=== PATIENT | female | born 1960 | race Caucasian/White ===

== ENCOUNTER 2016-12-16 07:52 | Day surgery (SDC) | payer OTHER ==
[~2016-12-16] VITALS: Ht 160 cm; Wt 77.1 kg
[2016-12-16] MEDS ORDERED: NEEDLELESS EST SET LARGE BORE 1 EA INFUS.SET MC ONE (09:25)
[2016-12-16] MEDS ORDERED: SECONDARY IV SET 1 EA INFUS.SET MC ONE (09:25)
[2016-12-16] MEDS ORDERED: IV SET PRIMARY 1 EA INFUS.SET MC ONE (09:25)
[2016-12-16] MEDS ORDERED: IV LR 1000 ML 1,000 ML ONE (09:25)
[2016-12-16] MEDS ORDERED: CEFAZOLIN SODIUM/DEXTROSE,ISO 50 ML IV ONE (10:08)
[2016-12-16] MEDS ORDERED: CETI-102 PO (10:15)
[2016-12-16] MEDS ORDERED: ALPR0.5T8 PO (10:15)
[2016-12-16] MEDS ORDERED: SENNA (10:15)
[2016-12-16] MEDS ORDERED: LORA2TAB PO (10:15)
[2016-12-16] MEDS ORDERED: MEDR5POW MC (10:15)
[2016-12-16] MEDS ORDERED: ESTR2TAB PO (10:15)
[2016-12-16] MEDS ORDERED: BUPIVACAINE MPF 0.5% W/EPI INJ 30 ML VIAL ONE (10:39)
[2016-12-16] MEDS ORDERED: KETOROLAC TROMETHAMINE INJ 30 MG/ML VIAL ONE (10:39)
[2016-12-16] MEDS ORDERED: BACITRACIN 50000 UNITS/VIAL ONE (10:39)
== END 2016-12-16 11:14 | disposition home or self-care (01) ==
LOC: DS 07:52
PROVIDERS: ATTEND Specialist
DX: Z53.20 Procedure and treatment not carried out because of patient's decision for unspecified reasons (principal); M16.12 Unilateral primary osteoarthritis, left hip; M51.26 Other intervertebral disc displacement, lumbar region; M45.6 Ankylosing spondylitis lumbar region
CPT/HCPCS: 36415; 86850; 86921; 87081; J0690; J7120; J1885; J3490

== ENCOUNTER 2019-04-26 08:10 | Inpatient (IN) | payer OTHER ==
[~2019-04-26] VITALS: Ht 160 cm; Wt 70.8 kg
[~2019-04-26 08:10] MED LIST: ALPR0.5T8 PO; CETI-102 PO; ESTR2TAB PO; LORA2TAB PO; MEDR5POW MC; SENNA
[2019-04-26 08:30] VITALS: BP 123/66
--- NOTE | 2019-04-26 08:45 | NUR ---
RECEIVED PT IN ROOM PT CAME WITH FAMILY PUSHING HER ON HER WALKER. PT IS A&OX4. PT DENIES PAIN OR SOB AT PRESENT MOMENT. PT SIGNED CONSENT AND SURGERY TEAM SHOWED UP AT BEDSIDE. OR WAS NOTIFIED THAT MULTIPLE ATTEMPTS TO PLACE AN IV WERE UNSUCCESSFUL. PT WENT TO OR BY BED WITH DAUGHTER IN LAW AT BEDSIDE.
[2019-04-26] MEDS ORDERED: TRANEXAMIC ACID 3,000 MG in SODIUM CHLORIDE IRRIG SOLUTION 70 ML IR ONE (09:00)
[2019-04-26] MEDS ORDERED: RIVA10TA PO (09:26)
[2019-04-26] MEDS ORDERED: LORA-258 PO (09:26)
[2019-04-26] MEDS ORDERED: POTA20TA83 PO (09:26)
[2019-04-26] MEDS ORDERED: HYDR-4354 PO (09:26)
[2019-04-26] MEDS ORDERED: MEDR5TAB PO (09:26)
[2019-04-26] MEDS ORDERED: ESTR2TAB PO (09:26)
[2019-04-26] MEDS ORDERED: HYDR25TA4 PO (09:26)
[2019-04-26] MEDS ORDERED: ONDA4TAB5 PO (09:26)
[2019-04-26] MEDS ORDERED: CETI1TAB9 PO (09:26)
[2019-04-26] MEDS ORDERED: FLUT16SP NS (09:26)
[2019-04-26] MEDS ORDERED: LORA0.5T PO (09:28)
[2019-04-26] MEDS ORDERED: SENN-168 PO (09:37)
[2019-04-26 09:43] LABS: BASOPHILS # (AUTO) 0.1 /CMM (0.0-0.2); BASOPHILS % (AUTO) 0.8 % (0.0-2.0); EOSINOPHILS % (AUTO) 1.1 % (0.0-6.0); HEMATOCRIT 38 % (33-45); HEMOGLOBIN 12.5 g/dL (11.5-14.8); LYMPHOCYTES # (AUTO) 2.2 /CMM (0.8-4.8); LYMPHOCYTES % (AUTO) 30.5 % (20.0-44.0); MEAN CORPUSCULAR HGB CONC 33 g/dl (31.0-36.0); MEAN CORPUSCULAR VOLUME 90 fL (82-100); MONOCYTES # (AUTO) 0.7 /CMM (0.1-1.30); MONOCYTES % (AUTO) 9.6 % (2.0-12.0); NEUTROPHILS # (AUTO) 4.3 /CMM (1.8-8.9); PLATELET COUNT (AUTO) 404 /CMM (150-450); RED BLOOD CELL COUNT(AUTO) 4.19 MIL/uL (4.0-5.2); WHITE BLOOD COUNT (AUTO) 7.4 K/uL (4.3-11.0)
[2019-04-26 09:44] LABS: CALCIUM, SERUM 8.6 mg/dL (8.5-10.1); CREATININE 0.9 mg/dL (0.6-1.3); POTASSIUM 3.9 mmol/L (3.5-5.1)
[2019-04-26 09:51] LABS: ALBUMIN 3.3 g/dL (3.4-5.0); BILIRUBIN,TOTAL 0.4 mg/dL (0.2-1.0); TOTAL PROTEIN, SERUM 6.9 g/dL (6.4-8.2)
[2019-04-26] MEDS ORDERED: BACITRACIN 50000 UNITS/VIAL ONE (10:20)
[2019-04-26] MEDS ORDERED: HYDROMORPHONE INJ 2 MG/ML DISP.SYRIN ONE (10:35)
[2019-04-26] MEDS ORDERED: ROCURONIUM BROMIDE 50 MG/5 ML ONE (10:35)
[2019-04-26] MEDS ORDERED: HYDROMORPHONE 1 MG/1 ML DISP.SYRIN ONE (12:21)
[2019-04-26] MEDS ORDERED: METOCLOPRAMIDE HCL 10 MG/2 ML VIAL ONE (12:28)
[2019-04-26] MEDS ORDERED: HYDROCODONE/APAP 5/325MG 1 EACH TABLET PO PRN ×2 (13:00)
[2019-04-26] MEDS ORDERED: ZOFRAN 4mg/2ML IV PRN (13:00)
[2019-04-26] MEDS ORDERED: COLACE 250 MG CAPSULE PO PRN (13:00)
[2019-04-26] MEDS ORDERED: DULCOLAX 10 MG/SUPP.RECT RC PRN (13:00)
[2019-04-26] MEDS ORDERED: SENOKOT 8.6 MG TABLET PO PRN (13:00)
[2019-04-26] MEDS ORDERED: HYDROMORPHONE 1 MG/1 ML DISP.SYRIN IV PRN (13:00)
[2019-04-26] MEDS ORDERED: TYLENOL 650 MG TABLET PO PRN (13:00)
[2019-04-26] MEDS ORDERED: IV LR 1000 ML 1,000 ML IV PRN (13:00)
--- NOTE | 2019-04-26 13:30 | NUR ---
PT BROUGHT BACK FROM OR. PT IS ASLEEP. VITAL SIGNS STABLE. WILL CONTINUE TO MONITOR.
[2019-04-26] MEDS: cetrizine 10 MG TABLET PO SCH ×2 (14:30→15:44)
[2019-04-26] MEDS ORDERED: HYDROCHLOROTHIAZIDE 25 MG TABLET PO PRN (14:30)
[2019-04-26] MEDS ORDERED: POTASSIUM CHLORIDE 20 MEQ TAB.PRT.SR PO PRN (14:30)
[2019-04-26 16:00] VITALS: BP 139/79
[2019-04-26] MEDS: FLUTICASONE PROPIONATE 16 GM BOTTLE NS SCH (16:57)
[2019-04-26] MEDS ORDERED: LORAZEPAM 0.5 MG TABLET PO SCH (17:00)
[2019-04-26] MEDS: SENNOSIDES 8.6 MG TABLET PO SCH ×2 (18:00→23:24)
[2019-04-26] MEDS ORDERED: HYDROCODONE/APAP 10/325MG 1 EA TABLET PO SCH (18:00)
[2019-04-26] MEDS ORDERED: HYDROCODONE/APAP 10/325MG 1 EA TABLET PO ONE (18:17)
[2019-04-26] MEDS ORDERED: HYDROMORPHONE 1 MG/1 ML DISP.SYRIN SQ PRN (18:30)
[2019-04-26] MEDS ORDERED: LORAZEPAM 0.5 MG TABLET PO PRN (18:30)
[2019-04-26] MEDS ORDERED: diphenhydrAMINE HCL 25 MG CAPSULE PO PRN (18:30)
--- NOTE | 2019-04-26 19:22 | NUR ---
RN MS CLOSING NOTES GAVE REPORT TO NARRATIVE WRITER RN. PT IS SITTING IN WALKER WITH FAMILY AT BEDSIDE. PT HAS HOME MEDICATIONS IN BAG BUT REFUSES TO GIVE TO PHARMACY. PT IS A&OX4. PT STATES PAIN LEVEL IS 5 OUT OF 10 ON LEFT LEG AND HIP. NORCO GIVEN. PT DENIES ANY SOB AT PRESENT TIME. PT HAS A 20 GAUGE SL IN L WRIST. WILL ENDORSE CONTINUITY OF CARE TO NARRATIVE WRITER RN.
--- NOTE | 2019-04-26 19:23 | NUR ---
M/S RN ENTRY NOTES PATIENT IN BED, RESTING COMFORTABLY AT THIS TIME. NO S/S OF ACUTE DISTRESS NOTED. RESPIRATION EVEN AND UNLABORED. NO SOB NOTED. PATIENT A/O X4 DENIES ANY PAIN AT THIS TIME. IV SITE ON L WRIST, NOTED WITH NO S/S OF INFECTION INFILTRATION. PATIENT S/P L HIP REPLACEMENT WILL CONTINUE TO PROVIDE PATIENT WITH PAIN MEDS ORDERED. PATIENT DAUGHTER IN LAW AT BED SIDE. PATIENT AMBULATE WITH ASSISTANCE. SAFETY MAINTAINED, BED AT THE LOWEST POSITION, LOCKED, CALL LIGHT WITHIN REACH. WILL CONTINUE TO MONITOR PATIENT PER PLAN OF CARE.
[2019-04-26] MEDS: ANCEF 1 G in IV D5W 50 ML IV SCH (19:55)
[2019-04-26] MEDS ORDERED: AMBIEN 5 MG TABLET PO PRN (22:00)
[2019-04-26] MEDS: HYDROCODONE/APAP 10/325MG 1 EA TABLET PO PRN (23:24)
[2019-04-27] VITALS: BP 129/68
[2019-04-27] MEDS: ANCEF 1 G in IV D5W 50 ML IV SCH (03:20)
[2019-04-27] MEDS: HYDROCODONE/APAP 10/325MG 1 EA TABLET PO PRN ×3 (03:29→11:37)
[2019-04-27 04:41] LABS: APPEARANCE,URINE TURBID (CLEAR); BILIRUBIN,URINE NEGATIVE (NEGATIVE); BLOOD, URINE NEGATIVE Ery/uL (NEGATIVE); COLOR,URINE YELLOW (YELLOW); KETONES,URINE NEGATIVE (NEGATIVE); LEUKOCYTE ESTERASE ,URINE TRACE (NEGATIVE); NITRITE, URINE NEGATIVE (NEGATIVE); PH,URINE 5.5 (5.0-8.0); PROTEIN,URINE NEGATIVE (NEGATIVE); UGLUCOSE NEGATIVE (NEGATIVE); UROBILINOGEN,URINE 0.2 EU/dL (0.2)
[2019-04-27 04:58] LABS: BACTERIA,URINE Few /HPF (None Seen); RBC,URINE 0-2 /HPF (0-2); SQUAMOUS EPITHELIAL CELL,UR Few /HPF (None Seen); URINE AMORPHOUS URATE Many /HPF (None Seen)
[2019-04-27] MEDS: SENNOSIDES 8.6 MG TABLET PO SCH ×2 (05:15→11:16)
--- NOTE | 2019-04-27 06:54 | NUR ---
M/S RN EXIT NOTES PATIENT IN BED, RESTING COMFORTABLY AT THIS TIME. NO S/S OF ACUTE DISTRESS NOTED. RESPIRATION EVEN AND UNLABORED. NO SOB NOTED. ALL MEDS GIVEN ORDERED. PAIN MEDS GIVEN WITH EFFECTIVENESS. PATIENT DENIES ANY PAIN AT THIS TIME. IV SITE ON RIGHT HAND NOTED WITH NO S/S OF INFECTION INFILTRATION, RUNNING WITH NS @75CC/HR. PATIENT DAUGHTER IN LAW AT BED SIDE. SAFETY MAINTAINED, BED AT THE LOWEST POSITION, LOCKED, CALL LIGHT WITHIN REACH. WILL ENDORSE TO THE AM SHIFT NURSE FOR PADMINI
[2019-04-27 07:43] LABS: BASOPHILS % (AUTO) 0.2 % (0.0-2.0); EOSINOPHILS % (AUTO) 0.1 % (0.0-6.0); HEMATOCRIT 33 % (33-45); HEMOGLOBIN 10.9 g/dL (11.5-14.8); LYMPHOCYTES # (AUTO) 2.2 /CMM (0.8-4.8); LYMPHOCYTES % (AUTO) 14.4 % (20.0-44.0); MEAN CORPUSCULAR HGB CONC 33 g/dl (31.0-36.0); MEAN CORPUSCULAR VOLUME 89 fL (82-100); MONOCYTES # (AUTO) 1.8 /CMM (0.1-1.30); MONOCYTES % (AUTO) 12.2 % (2.0-12.0); NEUTROPHILS # (AUTO) 11.1 /CMM (1.8-8.9); NEUTROPHILS % (AUTO) 73.1 % (43.0-81.0); PLATELET COUNT (AUTO) 372 /CMM (150-450); RED BLOOD CELL COUNT(AUTO) 3.73 MIL/uL (4.0-5.2); WHITE BLOOD COUNT (AUTO) 15.2 K/uL (4.3-11.0)
[2019-04-27 07:51] LABS: CALCIUM, SERUM 8.6 mg/dL (8.5-10.1); CREATININE 0.9 mg/dL (0.6-1.3); MAGNESIUM 1.9 mg/dL (1.8-2.4); PHOSPHORUS 3.4 mg/dL (2.5-4.9); POTASSIUM 3.6 mmol/L (3.5-5.1)
[2019-04-27 08:00] VITALS: BP 120/55
[2019-04-27] MEDS: cetrizine 10 MG TABLET PO SCH (08:10)
[2019-04-27] MEDS: FLUTICASONE PROPIONATE 16 GM BOTTLE NS SCH (08:10)
--- NOTE | 2019-04-27 08:14 | NUR ---
M/S RN NOTES PATIENT IN CHAIR ALERT , ORIENTED x3 , NO S/S OF ACUTE DISTRESS NOTED. RESPIRATION EVEN AND UNLABORED. NO SOB NOTED. PAIN MEDS GIVEN WITH EFFECTIVENESS. PATIENT DENIES ANY PAIN AT THIS TIME. IV SITE ON RIGHT HAND NOTED WITH NO S/S OF INFECTION INFILTRATION, RUNNING WITH NS @75CC/HR. PATIENT DAUGHTER IN LAW AT BED SIDE. SAFETY MAINTAINED, BED AT THE LOWEST POSITION, LOCKED, CALL LIGHT WITHIN REACH. PAIN DOCTOR AT BEDSIDE, NOTIFYED THAT NORCO WAS GIVEN AT 0740, WILL CONT TO MONITOR CLOSELY
[2019-04-27] MEDS ORDERED: RIVAROXABAN 10 MG TABLET PO SCH (09:00)
--- NOTE | 2019-04-27 09:00 | NUR ---
ms rn note seen by pt able to transfer from bed to chair
--- NOTE | 2019-04-27 10:19 | NUR ---
radio television announcer note seen by dr cathy donohue to discharge today, spoke with [facility] case management specialist will arrange home health
[2019-04-27] MEDS ORDERED: PNEUMOCOCCAL 23-VAL P-SAC VAC 0.5 ML VIAL SQ ONE (11:00)
--- NOTE | 2019-04-27 12:16 | NUR ---
ms rn note discharge instruction given to patient ,understand , hl removed pressure dressing applied, no bleeding noted , instructed to f\u with primary care doctor and [facility] next week , also instructed how to take home meds and possible side effects ,px was given to patient earlier other day , understood , also spoke with [employer] for home health will be arrange for patient , belonging signed , having lunch now ,
--- NOTE | 2019-04-27 13:44 | NUR ---
ms rn note patient stated that dont want to change incision dressing stated that dr umanzor wants to see her in office, will change dressing in his office notified that we has order change dressing prior discharge but patent refused ,stated that will see lauren in week
--- NOTE | 2019-04-27 13:57 | NUR ---
ms rn note discharged home with emilio condition, taken to lobby on w\c with daughter in [employer] and special events fundraiser
== END 2019-04-27 14:56 | disposition home or self-care (01) | DRG 470 ==
LOC: DS 08:10 → MEDSG1 08:12
PROVIDERS: ADMIT Student in an Organized Health Care Education/Training Program; ATTEND Student in an Organized Health Care Education/Training Program
PROC: 0SRB0JZ Replacement of Left Hip Joint with Synthetic Substitute, Open Approach (ICD-10-PCS; principal; 2019-04-26)
DX: M16.12 Unilateral primary osteoarthritis, left hip (principal); E44.1 Mild protein-calorie malnutrition; F32.9 Major depressive disorder, single episode, unspecified; F41.9 Anxiety disorder, unspecified; Z79.899 Other long term (current) drug therapy; R60.9 Edema, unspecified; Z91.09 Other allergy status, other than to drugs and biological substances
CPT/HCPCS: 36415; 71045-TC; 80048-TC; 80053-TC; 81000-TC; 83735-TC; 84100-TC; 85025-TC; 85730-TC; 86850-TC; 86921-TC; 88305-TC; 88311-TC; 97110-TC; 97116-TC; 97530-TC; A4217; A6209; G0378; J0690; J1100; J1170; J2405; J2710; J2765; J3490; J7060; J7120

== ENCOUNTER 2019-09-13 06:48 | Inpatient (IN) | payer OTHER ==
[~2019-09-13] VITALS: Ht 160 cm; Wt 90.3 kg
[~2019-09-13 06:48] MED LIST changes: -ALPR0.5T8 PO; -CETI-102 PO; +CETI1TAB9 PO; +FLUT16SP NS; +HYDR-4354 PO; +HYDR25TA4 PO; +LORA0.5T PO; -LORA2TAB PO; -MEDR5POW MC; +MEDR5TAB PO; +ONDA4TAB5 PO; +POTA20TA83 PO; +RIVA10TA PO; +SENN-168 PO; -SENNA
[2019-09-13] MEDS ORDERED: CELECOXIB 100 MG CAPSULE ONE (07:20)
[2019-09-13] MEDS ORDERED: ACETAMINOPHEN 325 MG TABLET ONE (07:21)
[2019-09-13] MEDS ORDERED: ETOMIDATE 2 MG/ML VIAL ONE (08:11)
[2019-09-13] MEDS ORDERED: FENTANYL PF 100MCG/2ML AMPUL ONE (08:15)
[2019-09-13] MEDS ORDERED: MIDAZOLAM HCL 2 MG/2ML VIAL ONE (08:16)
[2019-09-13] MEDS ORDERED: MEPERIDINE HCL/PF 100 MG/ML DISP.SYRIN ONE ×2 (08:16→10:04)
[2019-09-13] MEDS ORDERED: SEVOFLURANE 250 ML BOTTLE IH ONE (08:46)
[2019-09-13] MEDS ORDERED: BACITRACIN 50000 UNITS/VIAL ONE (08:56)
[2019-09-13] MEDS ORDERED: TRANEXAMIC ACID 3,000 MG in SODIUM CHLORIDE IRRIG SOLUTION 70 ML IR ONE (09:00)
[2019-09-13] MEDS ORDERED: ROCURONIUM BROMIDE 50 MG/5 ML ONE (09:21)
[2019-09-13] MEDS ORDERED: FENTANYL PF 250MCG/5ML AMPUL ONE (09:27)
[2019-09-13] MEDS ORDERED: DESFLURANE 240 ML BOTTLE IH ONE (09:40)
[2019-09-13 11:00] VITALS: BP 119/65
--- NOTE | 2019-09-13 11:00 | NUR ---
ADMISSION NOTE PT WAS BROUGHT UP FROM DAY SURGERY AT THIS TIME VIA BED, A/O X4 BREATHING EVEN AND UNLABORED WITH NO S/S OF ANY DISTRESS OR PAIN AT THIS TIME, IV IS PATENT AND INTACT WITH LR INFUSING, NOTED TO HAVE SURGICAL DRESSING ON RIGHT HIP THAT IS CLEAN DRY AND INTACT, SKIN INTACT EXPECT FOR SURGICAL SITE, SAFETY PRECAUTIONS IN PLACE, CALL LIGHT IN REACH, WILL MONITOR ACCORDINGLY
[2019-09-13] MEDS ORDERED: MENTHOL/CETYLPYRD (CEPACOL) 1 LOZ LOZENGE MM PRN (12:00)
[2019-09-13] MEDS ORDERED: NALOXONE HCL 0.4 MG/ML AMPUL IV PRN (12:30)
[2019-09-13] MEDS ORDERED: SENNOSIDES 8.6 MG TABLET PO PRN (12:30)
[2019-09-13] MEDS ORDERED: LORAZEPAM 0.5 MG TABLET PO PRN (12:30)
[2019-09-13] MEDS ORDERED: HYDROCHLOROTHIAZIDE 25 MG TABLET PO PRN (12:30)
[2019-09-13] MEDS ORDERED: MAG HYDROX/AL HYDROX/SIMETH 30 ML UDC PO PRN (12:30)
[2019-09-13] MEDS ORDERED: ONDANSETRON HCL/PF 4 MG/2 ML VIAL IVP PRN (12:30)
[2019-09-13] MEDS ORDERED: MAGNESIUM HYDROXIDE 30 ML UDC PO PRN (12:30)
[2019-09-13] MEDS ORDERED: diphenhydrAMINE HCL 25 MG CAPSULE PO PRN (12:30)
[2019-09-13] MEDS ORDERED: POTASSIUM CHLORIDE 20 MEQ TAB.PRT.SR PO PRN (12:30)
[2019-09-13] MEDS: HYDROCODONE/APAP 10/325MG 1 EA TABLET PO PRN ×3 (12:41→22:06)
[2019-09-13] MEDS ORDERED: HYDROMORPHONE 1 MG/1 ML DISP.SYRIN SQ PRN (13:30)
[2019-09-13] MEDS ORDERED: ACETAMINOPHEN 325 MG TABLET PO PRN (14:30)
[2019-09-13] MEDS: IV LR 1000 ML 1,000 ML IV PRN (14:49)
[2019-09-13] MEDS ORDERED: BISACODYL SUPP (10 MG) 10 MG/SUPP.RECT SUPP.RECT RC PRN (15:00)
[2019-09-13] MEDS: ANCEF 1 GM/50 ML D5W IV SCH ×4 (15:40→23:19)
[2019-09-13 16:00] VITALS: BP 115/70
[2019-09-13] MEDS: DOCUSATE SODIUM 100 MG CAPSULE PO SCH (16:17)
[2019-09-13] MEDS: LORAZEPAM 0.5 MG TABLET PO SCH (16:17)
[2019-09-13] MEDS: FLUTICASONE PROPIONATE 16 GM BOTTLE NS SCH (16:18)
[2019-09-13] MEDS ORDERED: FLUTICASONE PROPIONATE 16 GM BOTTLE NS SCH (17:00)
[2019-09-13] MEDS: SENNOSIDES 8.6 MG TABLET PO SCH ×2 (17:23→23:19)
--- NOTE | 2019-09-13 18:32 | NUR ---
RN CLOSING NOTE PT IN BED AT LOWEST AND LOCKED POSITION WITH SIDE RAILS UP X2, A/O X4 BREATHING EVEN AND UNLABORED WITH NO S/S OF ANY DISTRESS OR PAIN AT THIS TIME, IV IS PATENT AND INTACT, SAFETY PRECAUTIONS IN PLACE, CALL LIGHT IN REACH, ALL NEEDS ATTENDED TO, WILL ENDORSE TO NIGHT RN FOR PADMINI.
--- NOTE | 2019-09-13 19:40 | NUR ---
MS RN OPENING NOTES RECEIVED PATIENT FROM MORNING SHIFT, ALERT AND ORIENTED X 3. VERBALLY RESPONSIVE AND ABLE TO FOLLOW DIRECTIONS. BREATHING REGULAR AND UNLABORED ON ROOM AIR. LEFT AC G20 IV LINE INTACT AND PATENT, INFUSING WELL WITH NO BLEEDING OR S/S OF INFECTION/INFILTRATION NOTED. COMPLAINED OF 2/10 LOWER RIGHT HIP PAIN, NON-PHARMACOLOGICAL INTERVENTIONS PROVIDED. BODY ASSESSMENTS DONE, RIGHT HIP SURGICAL INCISION DRESSING INTACT CLEAN AND DRY WITH NO ACTIVE BLEEDING SEEN. CALL LIGHT IN REACH. BED LOW AND LOCKED ON SEMI FOWLERS POSITION. WILL CONTINUE TO MONITOR.
[2019-09-13 20:00] VITALS: BP 108/63
[2019-09-13 22:00] VITALS: BP 108/63
[2019-09-13] MEDS ORDERED: ZOLPIDEM TARTRATE 5 MG TABLET PO PRN (22:00)
--- NOTE | 2019-09-13 22:10 | NUR ---
MS RN NOTES COMPLAINED OF 6/10 RIGHT HIP PAIN, NORCO 10/325 2TABS GIVEN BY MOUTH. VITAL SIGN WNL. WILL CONTINUE TO MONITOR.
[2019-09-14] MEDS: HYDROCODONE/APAP 10/325MG 1 EA TABLET PO PRN ×3 (02:49→11:07)
[2019-09-14] MEDS: IV LR 1000 ML 1,000 ML IV PRN (05:04)
[2019-09-14] MEDS: SENNOSIDES 8.6 MG TABLET PO SCH ×2 (06:12→11:06)
--- NOTE | 2019-09-14 06:20 | NUR ---
MS RN CLOSING NOTES PATIENT IN BED, ALERT AND ORIENTED X 3. VERBALLY RESPONSIVE AND ABLE TO FOLLOW DIRECTIONS. BREATHING REGULAR AND UNLABORED ON ROOM AIR. LEFT AC G20 IV LINE INTACT AND PATENT, INFUSING WELL WITH NO BLEEDING OR S/S OF INFECTION/INFILTRATION NOTED. COMPLAINED OF 3/10 RIGHT HIP PAIN, NON-PHARMACOLOGICAL INTERVENTION RENDERED. CALL LIGHT IN REACH. BED LOW AND LOCKED ON SEMI FOWLERS POSITION. WILL ENDORSE TO MORNING SHIFT FOR PADMINI.
[2019-09-14 07:00] LABS: HEMOGLOBIN 8.5 g/dL (11.5-14.8)
--- NOTE | 2019-09-14 07:30 | NUR ---
MS RN RECEIVED ON BED, AWAKE,ALERT,ORIENTED X4,NOT IN ANY FORM OF DISTRESS, RESPIRATIONS EVEN AND UNLABORED,NO SOB NOTED, S/P RIGHT HIP ARTHROPLASTY W/ DRESSING DRY AND INTACT,DENIES JYOTI AT THIS TIME,ALL NEEDS ATTENDED.
[2019-09-14 07:56] VITALS: BP 122/62
[2019-09-14] MEDS ORDERED: RIVAROXABAN 10 MG TABLET PO SCH (09:00)
[2019-09-14] MEDS ORDERED: cetrizine 10 MG TABLET PO SCH (09:00)
[2019-09-14] MEDS ORDERED: medroxyPROGESTERone ACET 5 MG TABLET PO SCH (09:00)
--- NOTE | 2019-09-14 09:40 | NUR ---
MS SANCHEZ BREAKFAST SERVED,DUE MEDS GIVEN TOLERATED WELL.
[2019-09-14] MEDS: LORAZEPAM 0.5 MG TABLET PO SCH (09:50)
[2019-09-14] MEDS: DOCUSATE SODIUM 100 MG CAPSULE PO SCH (09:50)
[2019-09-14] MEDS: FLUTICASONE PROPIONATE 16 GM BOTTLE NS SCH (10:00)
--- NOTE | 2019-09-14 10:00 | NUR ---
MS RN WAS SEEN BY PT, TOLERATED WELL.
--- NOTE | 2019-09-14 11:00 | NUR ---
ms rn was seen by ortho, said that it's ok , do not change dressing today,all needs attended.
--- NOTE | 2019-09-14 11:20 | NUR ---
MS RN PATIENT TO BE DISCHARGE SOON TO SNF, PT AWARE FOR 1 PM CREDIT RISK OFFICER.
[2019-09-14 11:42] LABS: CALCIUM, SERUM 8.4 mg/dL (8.5-10.1); CREATININE 0.9 mg/dL (0.6-1.3); MAGNESIUM 1.6 mg/dL (1.8-2.4); PHOSPHORUS 3.2 mg/dL (2.5-4.9); POTASSIUM 4.2 mmol/L (3.5-5.1)
--- NOTE | 2019-09-14 11:50 | NUR ---
MS RN PATIENT IS READY TO BE TRANSFERRED, CN AWARE.
[2019-09-14 12:28] LABS: BASOPHILS % (AUTO) 0.2 % (0.0-2.0); EOSINOPHILS % (AUTO) 0.1 % (0.0-6.0); HEMATOCRIT 24 % (33-45); HEMOGLOBIN 7.7 g/dL (11.5-14.8); LYMPHOCYTES # (AUTO) 2.2 /CMM (0.8-4.8); LYMPHOCYTES % (AUTO) 17.3 % (20.0-44.0); MEAN CORPUSCULAR HGB CONC 33 g/dl (31.0-36.0); MEAN CORPUSCULAR VOLUME 80 fL (82-100); MONOCYTES # (AUTO) 1.8 /CMM (0.1-1.30); MONOCYTES % (AUTO) 14.2 % (2.0-12.0); NEUTROPHILS # (AUTO) 8.7 /CMM (1.8-8.9); NEUTROPHILS % (AUTO) 68.2 % (43.0-81.0); PLATELET COUNT (AUTO) 285 /CMM (150-450); RED BLOOD CELL COUNT(AUTO) 2.98 MIL/uL (4.0-5.2); WHITE BLOOD COUNT (AUTO) 12.8 K/uL (4.3-11.0)
--- NOTE | 2019-09-14 13:00 | NUR ---
ms rn [facility], report given to jaime marks, all needs attended.
--- NOTE | 2019-09-14 13:05 | NUR ---
ms rn patient forgot discharge papers, called jaime and faxed discharge papers.
[2019-09-15] MEDS ORDERED: ZYRTEC D PO SCH (09:00)
== END 2019-09-14 13:16 | disposition left against medical advice (07) | DRG 470 ==
LOC: DS 06:48 → MED 11:36
PROVIDERS: ADMIT Nurse Practitioner Acute Care; ATTEND Nurse Practitioner Acute Care
PROC: 0SR90JZ Replacement of Right Hip Joint with Synthetic Substitute, Open Approach (ICD-10-PCS; principal; 2019-09-13)
DX: M16.11 Unilateral primary osteoarthritis, right hip (principal); N95.9 Unspecified menopausal and perimenopausal disorder; J32.9 Chronic sinusitis, unspecified; Z96.642 Presence of left artificial hip joint; J42 Unspecified chronic bronchitis; E66.9 Obesity, unspecified; Z68.35 Body mass index [BMI] 35.0-35.9, adult; Z88.6 Allergy status to analgesic agent; Z88.3 Allergy status to other anti-infective agents; Z88.5 Allergy status to narcotic agent; Z88.8 Allergy status to other drugs, medicaments and biological substances; Z91.018 Allergy to other foods; Z88.2 Allergy status to sulfonamides; R60.0 Localized edema
CPT/HCPCS: 36415; 80048-TC; 83735-TC; 84100-TC; 85025-TC; 85027-TC; 86850-TC; 86921-TC; 87081-TC; 88305-TC; 88311-TC; 97110-TC; 97116-TC; 97530-TC; G0378; J0690; J2175; J2250; J3010; J3490; J7060; J7120; Q0163